=== PATIENT | female | born 1985 | race African-American/Black ===

== ENCOUNTER 2021-03-29 11:12 | Emergency (ER) | payer SELFPAY ==
[~2021-03-29] VITALS: Ht 177.8 cm; Wt 90.0 kg
[~2021-03-29 11:12] MED LIST: CLEOCIN150 MG PO; PERCOCET 5/325M1 TAB PO; PRENATA6 OR; ZITHROMAX500 MG OR
[2021-03-29 13:17] VITALS: BP 149/97
== END 2021-03-29 13:17 | disposition left against medical advice (07) | DRG 951 ==
LOC: ED 11:12 → LWOBS 13:17 → ED 13:17
DX: Z53.21 Procedure and treatment not carried out due to patient leaving prior to being seen by health care provider (principal)